=== PATIENT | female | born 1980 | race Caucasian/White ===

== ENCOUNTER 2023-01-28 10:52 | Outpatient (CLI) | payer SELFPAY ==
--- NOTE | ~2023-01-28 | MM_ITS ---
EXAMINATION: MM diag kameron implant BI w jero HISTORY: Capsular breast contracture. Impending implant replacement. TECHNIQUE: Implant displaced 3-D tomosynthesis images of both breasts were performed and synthetic 2- D images were generated. Bilateral implant ML, MLO and CC views. CAD analysis was submitted and inter preted. COMPARISON: None BREAST PARENCHYMAL COMPOSITION: The breasts are heterogeneously dense, which may obscure small masses . FINDINGS: Status post bilateral augmentation mammoplasty. No suspicious mass, architectural distortion, malignant calcifications, skin thickening or retraction of either breast is evident. IMPRESSION: 1. Chest with bilateral augmentation mammoplasty; no mammographic evidence of malignancy 2. Routine mammographic screening is recommended BI-RADS Category 1: Negative Reviewed, dictated and finalized at location A. IMPRESSION: 1. Chest with bilateral augmentation mammoplasty; no mammographic evidence of m alignancy 2. Routine mammographic screening is recommended BI-RADS Category 1: Negative
== END 2023-01-28 10:53 | disposition home or self-care (01) ==
PROVIDERS: PCP Physician Assistant Medical; Visit Provider Nurse Practitioner Obstetrics & Gynecology
DX: T85.49XA Other mechanical complication of breast prosthesis and implant, initial encounter (principal); N64.4 Mastodynia
CPT/HCPCS: 77062; 77066; G0279

== ENCOUNTER 2023-02-26 00:20 | Day surgery (SDC) | payer OTHER, SELFPAY ==
[2023-02-19 08:57] VITALS: BMI 27.6
--- NOTE | 2023-02-19 09:09 | PC.NURSE ---
Report to the Outpatient Waiting Room, entrance under the green pavilion located off [facility], at time 09:00AM on date 02-26-23. Planned Procedure Time: 11:00AM. Time changes happen often and if your time is changed the preop area will call you the afternoon before. - You and your visitor will be asked to self-screen and do not enter if you have any COVID symptoms. - A mask is optional within the hospital at this time. Patients may have clear liquids (water, carbonated beverages, clear teas, apple juice) until 3 hours prior to surgery (08:00AM) with a maximum of 20 ounces. - No food from midnight until time of surgery Take the following medications with a SIP of water the morning of surgery: XANAX AND ZOLOFT DO NOT STOP ANY OF YOUR OTHER PRESCRIPTION MEDICATIONS PRIOR TO SURGERY ?EXCEPT THE FOLLOWING Medications to discontinue per physician: MULTIVITAMIN Date to take last dose 02-22-23 Please no make-up, nail uzbek, hairspray, perfume, deodorant, or body powder the day of surgery. No jewelry (including any body piercings) or valuables the day of surgery, leave them at home. Please take a shower or bath the night before, or the morning of, surgery with an antibacterial soap. Wear comfortable, loose fitting clothing. - Jewelry must be removed prior to entering the operating room. Rings and piercings that are not removed may be cut off. - The hospital will not accept responsibility for valuables. - Please leave all valuables, including medications, at home the day of surgery. If you are going home after surgery, a licensed test car driver must drive you home. - NO public transportation without another adult if you receive anesthesia. - We recommend that an adult stay with you for 24 hours following discharge. - We also recommend that you do not drive, make important decision, drink alcoholic beverages, or take any drugs that were not prescribed by your health care provider for at least 24 hours after your discharge time. Follow any additional instructions given to you from your surgeon. If you or anyone in your household have experienced Covid symptoms in the past week, please notify your surgeon or the nurse liaison at the phone number below for possible testing. Telephone instructions given to PATIENT and asked if any additional questions and then verbalized understanding. Patient advised to call surgeon office or pre surgery nurse liaison [phone] if any additional questions.
--- NOTE | 2023-02-25 13:34 | P.PNAN_ITS ---
Anes - Initial Pre Proc Eval Procedure: Operation Date: 02/26/23 08:30 Proposed Procedures p Bilateral Breast Implant Removal with Capsulectomy - Franky Choi MD s Bilateral Brachioplasty - Franky Choi MD Date/Time: 02/25/23 13:34 Surgeon: Franky Choi MD Pre Op Diagnosis: Skin Laxity Patient Data Age: 42 Gender: F Height: 1.7 m Weight: 80 kg Allergies Allergy/AdvReac Type Severity Reaction Status Date / Time No Known Allergies Allergy Verified 02/26/23 07:20 Home Medications Medication Instructions Recorded Confirmed Type sertraline 100 mg tablet 200 mg PO DAILY #180 tabs 02/03/23 02/26/23 Rx multivitamin with minerals-folic 1 tablet PO DAILY 02/19/23 02/26/23 History acid 0.4 mg tablet alprazolam 1 mg tablet (Xanax) See Rx Instructions PO DAILY #90 02/22/23 02/26/23 Rx tabs Patient hx anesthesia problems: none Family hx anesthesia problems: none Results Review: All pre-operative results and documents have been reviewed as part of the pre- operative evaluation. [facility] Past Medical History Medical History (Updated 02/25/23 @ 13:34 by Jose L Wan DO) Anxiety Breast implant capsular contracture Surgical History Surgical History History of abdominoplasty History of cholecystectomy Hx of breast implants, bilateral Family History Family History Father Diabetes mellitus Mother Asthma Social History Social History Years smoked: 10 Smoking status: Former smoker Tobacco type: cigarettes Second hand tobacco smoke exposure: Yes Alcohol intake: former Alcohol use details: rare Substance use: current Substance use type: marijuana Other substance usage details: TABLETS Last use: 02-18-23 Living arrangements: alone Occupation/Education: occupation Gender identity (if verbalized by the patient): Female Sexual Orientation (if Verbalized by the Patient): Straight or Heterosexual Spiritual care concerns: No Anes - Eval Final PreProcedure Day of Procedure 02/25/23 13:34 Patient weight: overweight Heart: regular rate and rhythm Lungs: clear to auscultation Airway: Mallampati scale class II Neurological: alert and oriented Last oral intake: >/= 8 hours ASA classification: II Emergent: no Anesthetic plan: proceed Anesthesia type and monitoring: general ETT and standard monitoring Results Review: All pre-operative results and documents have been reviewed as part of the pre- operative evaluation. Informed Consent: The patient's anesthetic plan and its attendant risks and benefits were discussed with the patient/family/POA. Questions were solicited and answers provided to the satisfaction of the patient/family/POA.
[2023-02-26] VITALS (8 sets, daily range): BP systolic 100–132; BP diastolic 52–92; PULSE 68–128; RESP 12–20; TEMP 36.1; O2SAT 96–99
[2023-02-26 07:09] LABS: Urine Cotinine NEGATIVE
--- NOTE | 2023-02-26 07:58 | WPDHPUPDATE1 ---
History and Physical Update Update Date/Time: 02/26/23 07:58 History and Physical has been reviewed, including an updated exam of the patient. There are NO changes in the patient's condition. Risks, benefits, and alternatives have been discussed and questions answered. Patient agrees to proceed with procedure.
--- NOTE | 2023-02-26 07:59 | WPDHPUPDATE1 ---
History and Physical Update Update Date/Time: 02/26/23 07:59 History and Physical has been reviewed, including an updated exam of the patient. There are NO changes in the patient's condition. Risks, benefits, and alternatives have been discussed and questions answered. Patient agrees to proceed with procedure.
--- NOTE | 2023-02-26 08:00 | W.PM.PROC2 ---
Procedure Note - Detailed Date of Procedure 02/26/23 Pre-op Diagnosis History of breast augmentation Skin Laxity Post-op Diagnosis Same Procedure Performed 1. Bilateral brachioplasty 2. Bilateral breast implant removal Surgeon Franky Choi MD Anesthesia General Findings Lipoaspirate 800 cc Description of Procedure Here for the above procedures. Preoperatively risks, benefits, alternatives were discussed again today in extensive detail. I want to be very realistic about the risks involved as well as expectations. She has elected to utilize and IMF incision. She understands I can never guarantee complete capsulectomy. We discussed drain options and the literature on this. She understands that the capsule will be sent to pathology at her expense. Made sure answered all of their questions to satisfaction. They voiced a clear understanding. Consent obtained. Patient was marked in the preoperative holding area with their verification. Taken to the operating placed supine on the operating table. Anesthesia was provided by anesthesiology. Prepped and draped in a standard sterile fashion. Surgical time-out was taken. Brachioplasty Stab incisions were made and I tumesced with a tumescent solution. Once adequate time for hemostasis suction lipectomy was with a 4 mm basket cannula based on S.A.F.E. technique. This was completed based on preoperative planning, intraoperative observation, and rolling pinch test which was in full agreement. I completely de-fatted the planned resection area and a strip avulsion technique was completed. Starting proximal to distal a 10 blade was used to excise the intervening skin and this was tacked as we proceed to ensure good closure. This was closed using a 2-0 Quill, 3-0 strata fix, running subcuticular 4-0 Monocryl, and tissue glue. Dressings were placed. Breast 1% lidocaine and 0.25% Marcaine with epinephrine was used to provide a field block. Fifteen blade used to excise along previous scar. Dissection was continued down to the capsules identified it is an elevated above the capsule for majority of the capsule. At this point the implant and the capsule were removed. I removed the majority of the capsule. Capsule sent to pathology. I copiously irrigated with 3 L of saline solution on TUR tubing. Verified strict hemostasis. I closed with 2-0 Vicryl followed by 3-0 Stratafix in running subcuticular 4-0 Monocryl and tissue glue. Dressings and a surgical bra were placed. She tolerated the procedure well. Taken to the PACU without difficulty. Estimated Blood Loss 75 Drains No Packing No Pathology Yes (Bilateral breast capsules) Complications No immediate complications Condition Stable Disposition PACU
[2023-02-26] MEDS: LACTATED RINGERS 1,000 ML 30 ML IV CONT ×2 (08:05→12:22)
[2023-02-26] MEDS: ceFAZolin 2 GM/D5W 50 ML 2 GM/50 ML BAG IVPB (08:33)
[2023-02-26] MEDS: TRANEXAMIC ACID 1,000MG/ISO100 1,000 MG/100 ML BAG 200 MG IVPB (09:49)
[2023-02-26] MEDS: fentaNYL CITRATE INJ (*CRX) 100 MCG/2 ML VIAL 25 MCG IV PUSH ×4 (12:55→13:09)
[2023-02-26] MEDS: oxyCODONE HCL (*CRX) 5 MG TAB IR PO (13:47)
== END 2023-02-26 14:30 | disposition home or self-care (01) ==
PROVIDERS: PCP Physician Assistant Medical; Visit Provider Surgery Plastic and Reconstructive Surgery
PROC: 0HPT0JZ Removal of Synthetic Substitute from Right Breast, Open Approach (ICD-10-PCS; CPT 19371; principal; 2023-02-26 08:30)
PROC: (CPT 15836; 2023-02-26 08:30)
DX: Z41.1 Encounter for cosmetic surgery (principal); L57.4 Cutis laxa senilis; F12.90 Cannabis use, unspecified, uncomplicated
CPT/HCPCS: 19371; 15836; 80307; 88304; 88305; A9270; J0171; J0690; J1100; J1170; J1200; J2250; J2405; J2704; J2710; J3010; J7120

== ENCOUNTER 2023-06-03 00:18 | Day surgery (SDC) | payer OTHER, SELFPAY ==
[2023-05-25 15:13] VITALS: BMI 26.6
--- NOTE | 2023-05-25 15:19 | PC.NURSE ---
Report to the Outpatient Waiting Room, entrance under the green pavilion located off [facility], at time 0600 on date 06/03/23. Planned Procedure Time: 0730. Time changes happen often and if your time is changed the preop area will call you the afternoon before. - You and your visitor will be asked to self-screen and do not enter if you have any COVID symptoms. - A mask is optional within the hospital at this time. Patients may have clear liquids (water, carbonated beverages, clear teas, apple juice) until 3 hours prior to surgery with a maximum of 20 ounces. - No food from midnight until time of surgery Take the following medications with a SIP of water the morning of surgery: XANAX, SERTRALINE DO NOT STOP ANY OF YOUR OTHER PRESCRIPTION MEDICATIONS PRIOR TO SURGERY ?EXCEPT THE FOLLOWING Medications to discontinue per physician: VITAMINS/SUPPLEMENTS Date to take last dose: 05/30/23 Please no make-up, nail maltese, hairspray, perfume, deodorant, or body powder the day of surgery. No jewelry (including any body piercings) or valuables the day of surgery, leave them at home. Please take a shower or bath the night before, or the morning of, surgery with an antibacterial soap. Wear comfortable, loose fitting clothing. - Jewelry must be removed prior to entering the operating room. Rings and piercings that are not removed may be cut off. - The hospital will not accept responsibility for valuables. - Please leave all valuables, including medications, at home the day of surgery. If you are going home after surgery, a licensed shuttle bus driver must drive you home. - NO public transportation without another adult if you receive anesthesia. - We recommend that an adult stay with you for 24 hours following discharge. - We also recommend that you do not drive, make important decision, drink alcoholic beverages, or take any drugs that were not prescribed by your health care provider for at least 24 hours after your discharge time. Follow any additional instructions given to you from your surgeon. If you or anyone in your household have experienced Covid symptoms in the past week, please notify your surgeon or the nurse liaison at the phone number below for possible testing. Telephone instructions given to PT - TYSHAWN DOHERTY and asked if any additional questions and then verbalized understanding. Patient advised to call surgeon office or pre surgery nurse liaison [phone] if any additional questions.
[2023-06-03] VITALS (10 sets, daily range): BP systolic 107–160; BP diastolic 66–92; PULSE 75–120; RESP 12–18; TEMP 36.3–36.9; O2SAT 97–100
[2023-06-03 06:30] LABS: Urine Cotinine NEGATIVE
[2023-06-03] MEDS: LACTATED RINGERS 1,000 ML 30 ML IV CONT ×3 (06:45→13:08)
--- NOTE | 2023-06-03 06:51 | WPDANESEPPF ---
Anes - Initial Pre Proc Eval Procedure: Operation Date: 06/03/23 07:30 Proposed Procedures p Bilateral Breast Mastopexy with Galaflex - Franky Choi MD s Bilateral Breast Fat Grafting - Franky Choi MD Date/Time: 06/03/23 06:51 Surgeon: Franky Choi MD Pre Op Diagnosis: skin laxity, breast breast ptosis Patient Data Age: 42 Gender: F Height: 1.7 m Weight: 77.12 kg Allergies Allergy/AdvReac Type Severity Reaction Status Date / Time No Known Allergies Allergy Verified 05/25/23 15:12 Home Medications Medication Instructions Recorded Confirmed Type sertraline 100 mg tablet 200 mg PO DAILY #180 tabs 02/03/23 06/03/23 Rx multivitamin with minerals-folic 1 tablet PO DAILY 02/19/23 06/03/23 History acid 0.4 mg tablet alprazolam 1 mg tablet (Xanax) See Rx Instructions PO DAILY #90 02/22/23 06/03/23 Rx tabs Laboratory Tests 06/03/23 06:10 Cotinine Negative Patient hx anesthesia problems: none Family hx anesthesia problems: none Results Review: All pre-operative results and documents have been reviewed as part of the pre-operative evaluation. [facility] Past Medical History Medical History Anxiety Breast implant capsular contracture Surgical History Surgical History History of abdominoplasty History of cholecystectomy Hx of breast implants, bilateral Family History Family History Father Diabetes mellitus Mother Asthma Social History Social History Years smoked: 10 Smoking status: Former smoker Tobacco type: cigarettes Second hand tobacco smoke exposure: Yes Additional smoking assessment comments: FORMER [employer] SMO[employer] Alcohol intake: never Alcohol use details: rare Substance use: current Substance use type: marijuana Other substance usage details: CBD TO THC PILL Last use: 02-18-23 Living arrangements: alone Occupation/Education: occupation Gender identity (if verbalized by the patient): Female Sexual Orientation (if Verbalized by the Patient): Straight or Heterosexual Spiritual care concerns: No Anes - Eval Final PreProcedure Day of Procedure 06/03/23 06:51 Patient weight: normal Heart: regular rate and rhythm Lungs: clear to auscultation Airway: Mallampati scale class II Neurological: alert and oriented Last oral intake: >/= 8 hours ASA classification: II Emergent: no Anesthetic plan: proceed Anesthesia type and monitoring: general LMA and standard monitoring Results Review: All pre-operative results and documents have been reviewed as part of the pre-operative evaluation. Informed Consent: The patient's anesthetic plan and its attendant risks and benefits were discussed with the patient/family/POA. Questions were solicited and answers provided to the satisfaction of the patient/family/POA.
--- NOTE | 2023-06-03 07:25 | P.OP_ITS ---
Procedure Note - Detailed Date of Procedure 06/03/23 Pre-op Diagnosis skin laxity, breast breast ptosis Post-op Diagnosis Same Procedure Performed 1. Bilateral mastopexy with Galaflex 2. Fat grafting bilateral breast Surgeon Franky Choi MD Anesthesia General Findings Lipoaspirate: 1,200 cc Fat grafting: Right: 250 cc Left: 250 cc Galaflex: REF# [id number] Lot# [id number] Description of Procedure She is here today for the above. Previously and again today the risks, benefits, alternatives were discussed in extensive detail. I wanted her to be very realistic about the risks involved as well as expectations. We discussed aftercare and what to monitor for. We had an extensive conversation about realistic expectations as she outlines wanting her breast as high as possible on her chest which we outlined the limitations of this and what we could realistic accomplish. This was discussed previously and again today to make sure she was realistic about what we could and could not accomplish. Made sure answered all of her questions to her satisfaction today and consent was obtained. Marked in the preoperative holding area with their verification. The patient was taken to the operating room placed supine on the operating table. Anesthesia was provided by anesthesiology. A surgical time-out was taken. She was prepped and draped in a standard sterile fashion. Fat harvest A thorough abdominal examination was completed. Stab incisions made and tumescent utilized with a tumescent solution. This continued to the breast to prepare for that portion. Utilizing a 3mm multihole cannula suction lipectomy was completed in multiple planes and passes to a gravity separation device. Allowed adequate time for separation of adipose tissue. Breast I tailor tacked the breast into position. Placed her in a sitting position. Verified the nipple-areolar location based on preoperative planning as well as intraoperative observations and measurements in full agreement. She was placed supine. I de-epithelialized the superior pedicle. I then de-epithelialized the inferior breast tissue to create an autoaugmentation flap based on intercostal finish repairer. I elevated medial and lateral tissue flaps as well for planned closure. The autoaugmentation flap was sutured to the chest wall with 2-0 PDS. Galaflex had been soaking in betadine solution. Was trimmed and sutured into place with 2-0 Vicryl. I closed along the IMF with 2-0 Stratafix. Along the vertical with 2-0 PDS. I closed around the Jarad with 3-0 strata fix. 3-0 Monocryl along the vertical. 3-0 Stratafix along the IMF. I finally closed everything with running subcuticular 4-0 Monocryl and tissue glue. Laterally I placed a hemostatic net with 2-0 Nylon in two rows per side. Fluffs, surgical bra, abdominal binder were placed. Estimated Blood Loss 125 Drains No Packing No Pathology None sent Complications No immediate complications Condition Stable Disposition PACU
--- NOTE | 2023-06-03 07:25 | WPDHPUPDATE1 ---
History and Physical Update Update Date/Time: 06/03/23 07:25 History and Physical has been reviewed, including an updated exam of the patient. There are NO changes in the patient's condition. Risks, benefits, and alternatives have been discussed and questions answered. Patient agrees to proceed with procedure.
[2023-06-03] MEDS: SCOPOLAMINE 1.5 MG PATCH TRANSDERM (07:26)
[2023-06-03] MEDS: NACL 0.9% IRRIG POUR BOTTLE 900 ML, GENTAMICIN SULFATE INJ 160 MG, ceFAZolin 2 GM, POVI... IRRIGATION (07:32)
[2023-06-03] MEDS: ceFAZolin 2 GM/D5W 50 ML 2 GM/50 ML BAG IVPB (07:32)
[2023-06-03] MEDS: LACTATED RINGERS IRRIG 1,000 ML, LIDOCAINE HCL 1% LOCAL INJ 50 ML, EPINEPHrine HCL INJ ... INFILTRATE (07:32)
[2023-06-03] MEDS: TRANEXAMIC ACID 1,000MG/ISO100 1,000 MG/100 ML BAG 200 MG IVPB (07:46)
[2023-06-03] MEDS: ceFAZolin SODIUM 1 GM VIAL IV PUSH (11:42)
[2023-06-03] MEDS: fentaNYL CITRATE INJ (*CRX) 100 MCG/2 ML VIAL 25 MCG IV PUSH ×4 (12:28→12:46)
[2023-06-03] MEDS: diphenhydrAMINE HCl INJ 50 MG/ML VIAL 25 MG IV PUSH (13:01)
[2023-06-03] MEDS: HYDROmorphone HCL INJ (*CRX) 1 MG/ML SYR 0.5 MG IV PUSH ×2 (13:02→13:07)
[2023-06-03] MEDS: ONDANSETRON INJ 4 MG/2 ML VIAL IV PUSH (14:04)
[2023-06-03] MEDS: oxyCODONE HCL (*CRX) 5 MG TAB IR PO (14:04)
== END 2023-06-03 15:02 | disposition home or self-care (01) ==
PROVIDERS: PCP Physician Assistant Medical; Visit Provider Surgery Plastic and Reconstructive Surgery
PROC: (CPT 19316; principal; 2023-06-03 07:30)
PROC: (CPT 15769; 2023-06-03 07:30)
DX: Z41.1 Encounter for cosmetic surgery (principal); N64.81 Ptosis of breast; L57.4 Cutis laxa senilis; F41.9 Anxiety disorder, unspecified; F12.90 Cannabis use, unspecified, uncomplicated; Z87.891 Personal history of nicotine dependence
CPT/HCPCS: 19316; 15777 ×2; 15771; 15772 ×9; 80307; A9270; J0171; J0690; J1100; J1170; J1200; J1580; J2250; J2405; J2704; J3010; J7120